=== PATIENT | male | born 1990 | race Caucasian/White ===

== ENCOUNTER 2020-08-16 16:36 | Emergency (ER) | payer OTHER ==
[~2020-08-16] VITALS: Ht 177.8 cm; Wt 80.0 kg
[2020-08-16] MEDS ORDERED: INSU100I26 SQ (16:41)
[2020-08-16] MEDS ORDERED: KETOROLAC TROMETHAMINE 30 MG/ML VIAL IM ONE (18:15)
[2020-08-16] MEDS ORDERED: MORPHINE SULFATE 4 MG/ML SYRINGE IM ONE (18:15)
[2020-08-16] MEDS: ONDANSETRON HCL 4 MG/2 ML VIAL IM ONE ×2 (18:38→18:39)
[2020-08-16 19:29] VITALS: BP 139/101
[2020-08-16] MEDS ORDERED: HYDROCODONE/ACETAMINOPHEN 5-325 MG TABLET PO ONE (19:45)
== END 2020-08-16 20:06 | disposition home or self-care (01) ==
LOC: EMS 16:36
DX: M48.061 Spinal stenosis, lumbar region without neurogenic claudication (principal); M54.5 Low back pain; Z79.899 Other long term (current) drug therapy
CPT/HCPCS: 72131; 96372; 99284; J1885; J2270; J2405

== ENCOUNTER 2020-09-01 14:02 | Emergency (ER) | payer MEDICAID, OTHER ==
[~2020-09-01] VITALS: Ht 175.3 cm; Wt 88.6 kg
[~2020-09-01 14:02] MED LIST: INSU100I26 SQ
[2020-09-01] MEDS ORDERED: INSU100V36 SQ (14:09)
[2020-09-01] MEDS ORDERED: ACETAMINOPHEN 500 MG TABLET PO ONE (15:15)
[2020-09-01] MEDS ORDERED: LIDOCAINE 5% TRANSDERMAL PATCH TD ONE (15:15)
[2020-09-01] MEDS ORDERED: KETOROLAC TROMETHAMINE 30 MG/ML VIAL IM ONE (15:15)
[2020-09-01 16:30] VITALS: BP 140/80
== END 2020-09-01 16:31 | disposition home or self-care (01) ==
LOC: EMS 14:02
DX: M48.061 Spinal stenosis, lumbar region without neurogenic claudication (principal); M54.16 Radiculopathy, lumbar region; E11.9 Type 2 diabetes mellitus without complications; F12.90 Cannabis use, unspecified, uncomplicated; Z79.4 Long term (current) use of insulin
CPT/HCPCS: 82962; 96372; 99283; J1885

== ENCOUNTER 2021-05-26 20:26 | Emergency (ER) | payer MEDICAID, OTHER ==
[~2021-05-26] VITALS: Ht 175.3 cm; Wt 89.5 kg
[~2021-05-26 20:26] MED LIST changes: +INSU100V36 SQ
[2021-05-26] MEDS ORDERED: KETOROLAC TROMETHAMINE 30 MG/ML VIAL IM ONE (23:45)
[2021-05-26] MEDS ORDERED: CYCLOBENZAPRINE HCL 10 MG TABLET PO ONE (23:45)
[2021-05-27] MEDS ORDERED: HydrOXYzine PAMOATE 50 MG CAPSULE PO ONE (00:45)
[2021-05-27 01:01] VITALS: BP 128/74
== END 2021-05-27 01:07 | disposition home or self-care (01) ==
LOC: EMS 20:29
DX: M54.16 Radiculopathy, lumbar region (principal); E11.9 Type 2 diabetes mellitus without complications; Z79.899 Other long term (current) drug therapy
CPT/HCPCS: 96372; 99283; J1885

== ENCOUNTER 2021-05-29 13:12 | Emergency (ER) | payer OTHER ==
[~2021-05-29] VITALS: Ht 175.3 cm; Wt 88.6 kg
[2021-05-29] MEDS ORDERED: KETOROLAC TROMETHAMINE 30 MG/ML VIAL IM ONE (16:45)
[2021-05-29] MEDS ORDERED: OxyCODONE HCL/ACETAMINOPHEN 5-325 MG TABLET PO ONE (17:00)
[2021-05-29 17:55] VITALS: BP 131/99
== END 2021-05-29 17:57 | disposition home or self-care (01) ==
LOC: EMS 13:45
DX: G89.29 Other chronic pain (principal); M54.5 Low back pain; E11.9 Type 2 diabetes mellitus without complications
CPT/HCPCS: 96372; 99283; J1885

== ENCOUNTER 2021-06-04 13:53 | Emergency (ER) | payer OTHER ==
[~2021-06-04] VITALS: Ht 175.3 cm; Wt 84.1 kg
[2021-06-04 14:00] VITALS: BP 155/95
== END 2021-06-04 16:24 | disposition home or self-care (01) ==
LOC: EMS 14:12
DX: G89.29 Other chronic pain (principal); M54.5 Low back pain; E11.9 Type 2 diabetes mellitus without complications; F12.90 Cannabis use, unspecified, uncomplicated; Z79.4 Long term (current) use of insulin
CPT/HCPCS: 99282; Z7502

== ENCOUNTER 2021-06-11 19:59 | Emergency (ER) | payer OTHER ==
[~2021-06-11] VITALS: Ht 175.3 cm; Wt 84.1 kg
[2021-06-11] MEDS ORDERED: CYCL10 PO (20:20)
[2021-06-11] MEDS ORDERED: CARV3 PO (20:20)
[2021-06-11] MEDS ORDERED: ACETAMINOPHEN 325 MG TABLET PO ONE (22:15)
[2021-06-11] MEDS ORDERED: KETOROLAC TROMETHAMINE 30 MG/ML VIAL IM ONE (22:15)
[2021-06-11] MEDS ORDERED: LIDOCAINE 5% TRANSDERMAL PATCH TD ONE (22:15)
[2021-06-11] MEDS ORDERED: DIAZEPAM 5 MG TABLET PO ONE (22:15)
[2021-06-11 22:40] VITALS: BP 115/71
== END 2021-06-11 23:15 | disposition home or self-care (01) ==
LOC: EMS 20:02
DX: M54.16 Radiculopathy, lumbar region (principal); G89.29 Other chronic pain; M54.5 Low back pain; E11.9 Type 2 diabetes mellitus without complications; F17.210 Nicotine dependence, cigarettes, uncomplicated; F12.90 Cannabis use, unspecified, uncomplicated; Z79.4 Long term (current) use of insulin
CPT/HCPCS: 36415; 82962; 93005; 96372; 99284; J1885